=== PATIENT | male | born 1935 | race Caucasian/White ===

== ENCOUNTER 2024-03-12 15:41 | Inpatient (IN) | payer OTHER, SELFPAY ==
[2024-03-12] VITALS (14 sets, daily range): BP systolic 73–130; BP diastolic 43–88; BMI 21.2
[2024-03-12 13:15] LABS: % Basophils 0.1 % (0-2); % Eosinophils 1.6 % (0-6); % Immature Granulocytes 0.6 % (0-0.5); % Lymphocytes 10.1 % (20.5-51.1); % Monocytes 11.3 % (1.7-9.3); % Neutrophils 76.3 % (42.2-75.2); Absolute Eosinophils 0.3 10^3/uL (0-0.7); Absolute Immature Granulocytes 0.1 10^3/uL (0-0.05); Absolute Lymphocytes 1.7 10^3/uL (1.2-3.4); Absolute Monocytes 1.9 10^3/uL (0.1-0.6); Absolute Neutrophils 13.1 10^3/uL (1.4-6.5); Hematocrit 31.9 % (39.0-52.0); Hemoglobin 10.5 g/dL (13.0-18.0); Mean Corp Hgb Conc. 32.9 g/dL (33.0-37.0); Mean Corpuscular Hgb 28.3 pg (27.0-31.0); Mean Platelet Volume 9.4 fL (7.4-10.4); Nucleated Red Blood Cells % 0 % (-); Platelet Count 525 10^3/uL (130-400); Red Blood Cell Count 3.71 10^6/uL (4.70-6.10); Red Cell Dist. Width 14.9 % (11.5-14.5); White Blood Cell Count 17.2 10^3/uL (4.8-10.8)
--- NOTE | 2024-03-12 13:16 | ED.GENMED ---
History of Present Illness
General
Chief Complaint: Change in Mental Status
Source: patient
Exam Limitations: none
Time Seen by Provider: 03/12/24 12:52
Nursing documentation reviewed up to this point in time: agreed with
History of Present Illness
History of Present Illness:
Patient currently being treated for C. difficile colitis, presents to ED from intermediate secondary to poor oral intake along with generalized weakness over the past 2 days. Upon arrival, patient is found to be hypotensive, and reports decreased
appetite, but has no other complaints. Denies fever. Denies abdominal pain. Denies nausea or vomiting. Patient states that he has not had any bowel movement over the past 2 days. Denies coughing. Denies headache. Denies dizziness.
Review of Systems
Review of Systems
Allergies reviewed?: Yes
All Other Systems: ROS reviewed and negative except as documented in HPI and ROS
Constitutional: Reports no symptoms; Denies fever
EENT: Reports no symptoms
Respiratory: Reports no symptoms; Denies cough or trouble breathing
Cardiac: Reports no symptoms
ABD/GI: Reports no symptoms; Denies abdominal pain, vomiting or diarrhea
Musculoskeletal: Reports no symptoms
Skin: Reports no symptoms
Neurological: Reports weakness; Denies headache
Phy Exam
Physical Exam
Physical Exam:
Physical Exam
General: mild distress, acutely ill. afebrile. weak appearing.
Head: nc/at. eomi
Neck: supple. normal range of motion.
Heart: s1/s2 regular rate and rhythm, no murmur. equal radial pulses.
Lungs: no acute respiratory distress. clear bilaterally
Abdomen: normal bowel sounds. not tender. no distention
Neuro: alert and oriented x 3. no focal neurological deficits
Skin: no rash
Psychiatric: well kept. interactive and cooperative
Extremities: no edema. no calf tenderness.
Sepsis
Sepsis Screening
Sepsis Assessment: Sepsis
Sepsis Screen
Sepsis Screen: Sepsis
Date: 03/12/24
Time: 19:38
Course
Orders/Labs/Results
Orders:
Orders
03/12/24 Breakfast
Regular
At Your Request: Limited, Rules Examiner Required
03/12/24 12:53
EKG [Electrocardiogram (*1)] Urgent
Reason for Study: Chest Pain
EKG- Treatment ONCE
03/12/24 13:03
Complete Blood Count/With Diff Urgent
Comprehensive Metabolic Panel Urgent
03/12/24 14:00
0.9% Sodium Chloride 1000 ml [Nss] 1,000 ml IV Wide Open mls/hr
03/12/24 14:39
CR Chest - 2 Views Stat
Comment:
Reason For Exam: sob
03/12/24 14:40
Admit/Transfer Patient As Directed
Co-Sign Provider:
Level of Care: Inpatient admission
Assign to:: IMU- Intermediate Care
Physician / Group: akosua weller
Diagnosis: acute encephalopathy
Reason for Hospitalization: acute encephalopathy
Expected length of stay greater than two midnights?: Yes
ELOS- Estimated Length of Stay in days: 3
I certify the patient meets the requirements for IP care: Yes
PRN Pain Medication Management As Directed
May give lesser potent ordered pain med per pt: Yes
preference::
Protocol:: Medication orders for pain may be administered in a
manner that supports deferring to patient preference
when the pt is:
- Requesting an ordered lesser potent pain medication.
Least to most potent pain medications are defined
as: acetaminophen < NSAID < tramadol < opioids
(morphine, oxycodone, hydromorphone).
- Requesting a lesser dose of the same medication IF
ORDERED.
- Requesting a less intrusive route of administration
if both routes are prescribed by the provider (PO <
IV).
03/12/24 14:41
Code Status As Directed
Resuscitation Status: Full Code
03/12/24 16:17
0.9% Sodium Chloride 1000 ml [Nss] 1,000 ml IV 80 mls/hr
Acetaminophen [Tylenol] 650 mg PO Q4HPRN PRN
03/12/24 16:17
Activity As Directed
Activity Level: As Tolerated
Vital Signs As Directed
Frequency: Per unit guidelines
DX Deep Vein Thrombosis Video Routine
03/12/24 16:21
Artificial Tears (Pf) [Refresh Eye Drops (Pf)] 1 drops BOTH EYES Q1HPRN PRN
03/12/24 17:21
UA Reflex to Culture [Urinalysis Reflex To Culture] Stat
Date Specimen was Collected: 03/12/24
Time Specimen was Collected: 16:21
03/12/24 20:00
Heparin 5,000 units SC Q12
Non-Formulary Item See Dose Instructions PO Q12
03/12/24 22:00
Atorvastatin [Lipitor] 20 mg PO HS
03/13/24 06:00
Basic Metabolic Panel IN AM
Complete Blood Count/No Diff IN AM
03/14/24 06:00
Basic Metabolic Panel IN AM
Complete Blood Count/No Diff IN AM
03/15/24 06:00
Basic Metabolic Panel IN AM
Complete Blood Count/No Diff IN AM
03/16/24 06:00
Basic Metabolic Panel IN AM
Complete Blood Count/No Diff IN AM
Abnormal Lab Results
03/12/24
13:03
WBC 17.2 H 10^3/uL
(4.8-10.8)
RBC 3.71 L 10^6/uL
(4.70-6.10)
Hgb 10.5 L g/dL
(13.0-18.0)
Hct 31.9 L %
(39.0-52.0)
MCHC 32.9 L g/dL
(33.0-37.0)
RDW 14.9 H %
(11.5-14.5)
Plt Count 525 H 10^3/uL
(130-400)
Abs Immat Gran (auto) 0.1 H 10^3/uL
(0-0.05)
Absolute Neuts (auto) 13.1 H 10^3/uL
(1.4-6.5)
Absolute Monos (auto) 1.9 H 10^3/uL
(0.1-0.6)
Immature Gran % 0.6 H %
(0-0.5)
Neutrophils % 76.3 H %
(42.2-75.2)
Lymphocytes % 10.1 L %
(20.5-51.1)
Monocytes % 11.3 H %
(1.7-9.3)
Sodium 129 L mmol/L
(135-145)
Chloride 90 L mmol/L
(98-107)
Creatinine 1.4 H mg/dL
(0.7-1.3)
03/12/24 13:03
03/12/24 13:03
Vital Signs
Initial and Last Documented VS:
Initial Vital Signs
Pulse Resp BP
95 25 80/50
03/12/24 12:35 03/12/24 12:35 03/12/24 12:35
Last Documented Vital Signs
Temp Pulse Resp BP Pulse Ox
99.6 F 93 13 93/56 99
03/12/24 17:13 03/12/24 17:13 03/12/24 17:13 03/12/24 17:13 03/12/24 17:13
MDM/Problems Addressed
MDM/Problems Addressed:
Patient evaluated immediately upon arrival secondary to severe hypotension with mental status change. History and exam consistent with likely dehydration, from currently being treated C. difficile colitis along with poor oral intake. No focal
complaint nor other findings noted on exam. Patient will require further IV hydration as inpatient.
Hypertension improving with IV hydration. No indication for pressor support at this time.
Critical care statement: A total of 30 minutes of critical care time was provided for this patient. This includes management of unstable vital signs, evaluation of the patient at bedside, reviewing the patient's pertinent medical records, review of
old EKGs and review of pertinent medical records. This time with separate from time utilized to perform the aforementioned documented procedures
*EKG
Interpreted by ED Provider?: Yes
EKG Intrepretation Date: 03/12/24
Heart Rate: 87
Rate: normal
QRS Pattern: right bundle branch block
*Critical Care Note
Total Time (30-74mins, 75-104mins- exclusive of procedures): 30 min
ED Attending Note
-
Portions of this chart may have been created with voice recognition software.� Occasional wrong word or��sound alike� substitutions may have occurred due to the inherent limitations of voice recognition software.
Discharge Plan
Departure
Patient Disposition: Admit
Date of Disposition: 03/12/24
Time of Disposition: 13:43
Admit to: Telemetry
Presentation/result/management discussed w/ accepting MD/DO: Hospitalist
Discharge Problem:
Hypotension, Dehydration, Weakness, C. difficile diarrhea
Interventions
Interventions:
ED- Neurological Assessment Last Done: 03/12/24 17:12
[2024-03-12 13:36] LABS: ALT (SGPT) 21 U/L (0-50); AST (SGOT) 28 U/L (17-59); Albumin 4.1 g/dl (3.5-5.0); Alkaline Phosphatase 98 U/L (38-126); Blood Urea Nitrogen 20 mg/dl (9-20); Calcium 9.3 mg/dl (8.4-10.2); Carbon Dioxide 24 mmol/L (22-30); Chloride 90 mmol/L (98-107); Estimated Creatinine Clearance 35 ml/min; Glucose 99 mg/dl (70-99); Potassium 4.4 mmol/L (3.5-5.1); Sodium 129 mmol/L (135-145); Total Bilirubin 0.6 mg/dl (0.2-1.3); eGFR 48.65
[2024-03-12] MEDS: NSS 1000 IV (14:01)
--- NOTE | 2024-03-12 14:19 | HPS.HSE ---
Addendum entered and electronically signed by Mark Ragsdale MD 03/12/24 18:02:
I saw and examined the patient.
The COMBER TENDER or PA's note was reviewed and I agree with the note.
Comment: 88 year old with PMH for hypertension, hyperlipidemia presented to us from [place] home with hypotension and confusion. Recently had gradual for C. difficile colitis, treated with Pradaxa Meissen. Now admitted for tries weakness, fatigue,
continued hypotension. Patient is poor historian, although acknowledges person, year and president. Blood pressure 93/56, respirate 13, pulse 93, afebrile. White count 17.2, platelets 525, sodium 129, creatinine 1.4 unknown baseline, UA is
positive. No imaging or lactate was performed in the ED. Awaiting official read of CT abdomen pelvis, head CT. Plan�continue IV fluids, obtain lactate. Follow-up on CT head. Start empiric ceftriaxone for UTI. Monitor hyponatremia with
resuscitation. Hold antihypertensives.
Original Note:
Family Physician
-
Family Physician:
Chief Complaint
-
confusion
History of Present Illness
88 year old with PMH for hypertension, hyperlipidemia presented to us from [place] home with hypotension and confusion. Patient is poor historian. History obtained from daughter. patient currently being treated for C. difficile colitis. Patient
was just got released from [place] on the . he was admitted there with C diff and hypotension. Daughter stated poor oral intake and generalized weakness and fatigue. Denied fevers chills patient denied chest pain or short of breath. Patient
denied abdominal pain, nausea, vomiting or diarrhea. Patient denied dysuria hematuria.
Patient was noted hypotensive in ER. Patient received fluids. Admitting for further management.
Medical History
Past Medical History
Past Medical History: Reports Other
Additional Past Medical History:
C. difficile diarrhea
Anemia
Hypertension
Hyperlipidemia
CKD
A-fib
Past Surgical History: Reports Other
Social History
Tobacco: Non-smoker
Alcohol: None
Drug: None
Personal: Single
Living: Assisted Living
Family History
Family History: Not pertinent
Allergies / Home Medications
Allergies reflects when Allergies were last updated in [facility].
Home Medications with original date entered in [facility]
Allergy/Medication List:
Allergies
Allergy/AdvReac Type Severity Reaction Status Date / Time
cephalexin Allergy Unknown Unknown Verified 03/12/24 12:52
Home Medications
acetaminophen 325 mg tablet 650 mg PO Q6HPRN PRN mild pain/fever 03/12/24
bisacodyl 10 mg rectal suppository 10 mg ME DAILYPRN PRN if no results from mom 03/12/24
dextran 70-hypromellose (PF) 0.1 %-0.3 % eye drops in a dropperette (Artificial Tears (PF)) 1 drp BOTH EYES Q1HPRN PRN dry eyes 03/12/24
fidaxomicin 200 mg tablet 200 mg PO Q12H 03/12/24
hydrochlorothiazide 25 mg tablet 25 mg PO DAILY 03/12/24
magnesium hydroxide 400 mg/5 mL oral suspension (Milk of Magnesia) 30 ml PO [id number] PRN no bm x3 days 03/12/24
methocarbamol 500 mg tablet 500 mg PO TIDPRN PRN muscle spasms 03/12/24
metoprolol succinate 25 mg tablet,extended release 24 hr 25 mg PO DAILY 03/12/24
simvastatin 40 mg tablet 40 mg PO HS 03/12/24
Review of Systems
-
Constitutional: Reports No Symptoms
EENT: Reports No Symptoms
Respiratory: Reports No Symptoms
Cardiac: Reports No Symptoms
Abdomen/GI: Reports No Symptoms
: Reports No Symptoms
Musculoskeletal: Reports No Symptoms
Skin: Reports No Symptoms
Neurological: Reports No Symptoms
Endocrine: Reports No Symptoms
Hematologic/Lymphatic: Reports No Symptoms
Psych: Reports No Symptoms
Physical Exam
Vital Signs
Vital Signs
Temp Pulse Resp BP Pulse Ox
98.1 F 93 25 76/43 98
03/12/24 12:39 03/12/24 12:45 03/12/24 12:45 03/12/24 12:41 03/12/24 12:45
Physical Exam
General: Well Developed, Well Nourished and No Apparent Distress
HEENT: NormoCephalic, Moist mucous membranes and Atraumatic
Respiratory: Clear
Cardiac: S1/S2 and Regular Rhythm; No Murmur or Rub
GI: Soft, Non Tender, Non Distended and Normal Bowel Sounds; No Organomegaly
Rectal: Deferred by Provider
Musculoskeletal: No Clubbing, No Cyanosis and No Edema
Skin: No Rash
Neuro: Nonfocal/grossly intact
Psych: Confused
Laboratory Results
-
03/12/24 13:03
03/12/24 13:03
Laboratory Results
Total Bilirubin 0.6 mg/dl (0.2-1.3) 03/12/24 13:03
AST 28 U/L (17-59) 03/12/24 13:03
ALT 21 U/L (0-50) 03/12/24 13:03
Alkaline Phosphatase 98 U/L (38-126) 03/12/24 13:03
Data Reviewed
-
Lab Data: Labs Reviewed by me
Impression/Plan
-
# Hypotension/weakness likely from poor oral intake
-PT/OT consulted
-Fluids continued
-Continue to monitor vital signs
# Metabolic encephalopathy likely from c diff infection
-Obtain UA
-obtain chest x ray
-obatain CT head
-obatin C diff
-blood culture
-CT abdomen pelvis
-Lactate ordered
#C. difficile infection
-WBC 17.2, patient is afebrile
-Fidaxomicin continued
# Anemia likely chronic
-Hemoglobin stable at 10.5
-No active bleeding
-Continue to monitor
# Hyponatremia/acute kidney injury likely hypovolemic
-Sodium 129
-Continue to monitor BMP
-LR continued
# Hypotension
# history of hypertension
-Hold metoprolol and HCTZ
# Hyperlipidemia
-Statin continued
# DVT prophylaxis
-Heparin subcu
#CODE STATUS
-Full code
[2024-03-12 17:35] LABS: Urine Albumin Trace (Neg - Trace); Urine Bilirubin Negative (Negative); Urine Character Slightly Cloudy (Clear); Urine Color Yellow; Urine Glucose Negative (Negative); Urine Ketone Negative (Negative); Urine Leukocyte 2+ (Negative); Urine Nitrite Negative (Negative); Urine Occult Blood 2+ (Negative); Urine Urobilinogen Negative (Neg - 1+)
[2024-03-12 17:43] LABS: Lactic Acid 0.8 mmol/L (0.7-2.0)
[2024-03-12 17:50] LABS: Urine Bacteria Many (Negative); Urine Urothelial Cell 0-2 /LPF (FEW); Urine White Cell 80-90 /HPF (0-5)
[2024-03-12] MEDS: LR 1000 IV (17:59)
[2024-03-12] MEDS: TYLENOL 650 MG PO (17:59)
[2024-03-12] MEDS: STERILE WATER FOR INJECTION 10 ML IV (20:49)
[2024-03-12] MEDS: HEPARIN 5000 UNITS SC (20:49)
[2024-03-12] MEDS: ROCEPHIN 1000 MG IV (20:49)
[2024-03-12] MEDS: NON-FORMULARY ITEM 1 UNIT PO (20:49)
[2024-03-13] VITALS (18 sets, daily range): BP systolic 101–149; BP diastolic 52–85; PULSE 68–83; O2SAT 97; BMI 21.2
[2024-03-13] MEDS: TYLENOL 650 MG PO ×4 (00:43→22:05)
[2024-03-13] MEDS: LIPITOR 20 MG PO (00:44)
[2024-03-13] MEDS: LR 1000 IV ×2 (06:18→18:21)
[2024-03-13 06:21] LABS: Hematocrit 29.6 % (39.0-52.0); Hemoglobin 9.7 g/dL (13.0-18.0); Mean Corp Hgb Conc. 32.8 g/dL (33.0-37.0); Mean Corpuscular Hgb 28.2 pg (27.0-31.0); Mean Platelet Volume 9.5 fL (7.4-10.4); Platelet Count 489 10^3/uL (130-400); Red Blood Cell Count 3.44 10^6/uL (4.70-6.10); Red Cell Dist. Width 14.8 % (11.5-14.5)
[2024-03-13 06:34] LABS: Blood Urea Nitrogen 17 mg/dl (9-20); Calcium 9.1 mg/dl (8.4-10.2); Carbon Dioxide 21 mmol/L (22-30); Chloride 96 mmol/L (98-107); Estimated Creatinine Clearance 62 ml/min; Glucose 69 mg/dl (70-99); Potassium 4.4 mmol/L (3.5-5.1); Sodium 132 mmol/L (135-145); eGFR > 60.00
[2024-03-13] MEDS: HEPARIN 5000 UNITS SC ×2 (09:21→20:05)
[2024-03-13] MEDS: NON-FORMULARY ITEM PO (09:29)
[2024-03-13] MEDS: NON-FORMULARY ITEM 1 UNIT PO ×2 (10:30→20:07)
--- NOTE | 2024-03-13 15:12 | W.PN.HOSP.TC ---
Today's Communication/Plan
-
Repeat blood cultures, f/u cultures
Continue antibiotics
monitor bmp
cont cdiff treatment, iso precautions
Assessment / Plan
Assessment / Plan
General: Well Developed, Well Nourished and No Apparent Distress
HEENT: NormoCephalic, Moist mucous membranes and Atraumatic
Respiratory: Clear
Cardiac: S1/S2 and Regular Rhythm; No Murmur or Rub
GI: Soft, Non Tender, Non Distended and Normal Bowel Sounds; No Organomegaly
Rectal: Deferred by Provider
Musculoskeletal: No Clubbing, No Cyanosis and No Edema
Skin: No Rash
Neuro: Nonfocal/grossly intact
Psych: Confused
#Severe sepsis
� Secondary to complicated UTI, bacteremia
�continue ceftriaxone, improving
� Repeat blood cultures, follow-up final cultures
� IV fluids
#Hyponatremia
� Most likely hypovolemic hyponatremia
� Monitor with resuscitation
#Proctitis
#C. difficile infection
� Continue Dificid
#Acute metabolic encephalopathy
� Secondary sepsis
� Continue to monitor, improving
#Moderate gallbladder distention
� No right upper quadrant tenderness
� No evidence of transaminitis
� Follow-up outpatient
#Chronic anemia
� Continue to monitor
#Hyperlipidemia
Continue statin
#DVT prophylaxis
� HSQ
Total time spent on today's encounter was 50 minutes which included time spent in counseling the patient/family regarding diagnosis and treatment plan as listed above, goals of care, and symptom management. Case was discussed with nursing staff,
specialists, and care coordinators/case management. All labs and imaging personally reviewed by me. Remainder the time spent in detailed review of previous records, lab data, imaging, and other medical provider documentation
Anticipated Discharge: > 48 hours
Subjective/Interval History
-
Date of Service: March 13, 2024
Patient's mental status greatly improved
Objective Data
-
Labs:
Laboratory Results
03/13/24
05:24
WBC 15.0 H
Hgb 9.7 L
Hct 29.6 L
Plt Count 489 H
Sodium 132 L
Potassium 4.4
Chloride 96 L
Carbon Dioxide 21 L
BUN 17
Creatinine 0.8
Glucose 69 L
Calcium 9.1
Vital Signs:
Vital Signs
Temp Pulse Resp BP Pulse Ox
98.3 F 92 18 106/70 100
03/13/24 15:07 03/13/24 11:03 03/13/24 11:03 03/13/24 11:03 03/12/24 20:56
I&O
03/12/24 03/13/24 03/14/24
06:59 06:59 06:59
Intake Total 1440 / 1440
Output Total 1050 / 1050 525 / 525
Balance 390 / 390 -525 / -525
Review of Systems
-
History Source: Patient
All other systems: Not reviewed unless documented
Data Reviewed
-
CT Scan: Report Reviewed by me
Labs: Labs Reviewed by me
--- NOTE | 2024-03-13 16:46 | PTCARENOTE ---
rec'd pt from the ER. Transferred in to the bed. denies pain. placed on tele pack #25 pt NSR with PVCs. Ambulated to the bathroom using rolling walker with assist times one. LR infusing at 80ml/hr. Oriented to room call cali in reach.
[2024-03-13] MEDS: ROCEPHIN 1000 MG IV (17:38)
[2024-03-13] MEDS: STERILE WATER FOR INJECTION 10 ML IV (17:38)
[2024-03-13] MEDS: LIPITOR PO (21:11)
[2024-03-14 03:37] VITALS: BP 130/59
[2024-03-14] MEDS: LR 1000 IV (06:41)
[2024-03-14 07:38] VITALS: BP 146/73
[2024-03-14 08:05] LABS: Hematocrit 31.6 % (39.0-52.0); Hemoglobin 9.8 g/dL (13.0-18.0); Mean Corpuscular Hgb 27.7 pg (27.0-31.0); Mean Corpuscular Volume 89.3 fL (80.0-94.0); Platelet Count 471 10^3/uL (130-400); Red Blood Cell Count 3.54 10^6/uL (4.70-6.10); Red Cell Dist. Width 14.6 % (11.5-14.5); White Blood Cell Count 9.8 10^3/uL (4.8-10.8)
[2024-03-14 08:42] LABS: Blood Urea Nitrogen 16 mg/dl (9-20); Calcium 9.2 mg/dl (8.4-10.2); Carbon Dioxide 25 mmol/L (22-30); Chloride 99 mmol/L (98-107); Estimated Creatinine Clearance 70 ml/min; Glucose 87 mg/dl (70-99); Potassium 4.3 mmol/L (3.5-5.1); Sodium 135 mmol/L (135-145); eGFR > 60.00
[2024-03-14] MEDS: NON-FORMULARY ITEM 1 UNIT PO ×2 (10:23→20:43)
[2024-03-14] MEDS: HEPARIN 5000 UNITS SC ×2 (10:24→20:41)
[2024-03-14 11:02] VITALS: BP 149/70
[2024-03-14] MEDS: INVANZ 60 MG IV (11:24)
[2024-03-14] MEDS: TYLENOL 650 MG PO ×2 (12:44→20:48)
--- NOTE | 2024-03-14 12:51 | CON.ID ---
Consultation
-
Date/Time Consultation Requested: March 14, 2024 3143
Date/Time Consultation Performed: March 14, 2024 1250
Requesting Provider: Dr. Mark Ragsdale
Performing Provider: Dr. Gwen Richmond
Reason for Consultation: Bacteremia
Chief Complaint / Past History
Chief Complaint
Weakness and change in mental status
History of Present Illness
History obtained from the patient as well as review of outside medical records. 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
March 12 due to change in mental status. He was recently hospitalized at [facility] from March 02 to March 08 with fever, leukocytosis, diarrhea, hypotension, A-fib with RVR. Stool for C. difficile was positive. CT abdomen pelvis
no colitis. Chest x-ray negative. Patient was seen by infectious disease. He received oral vancomycin while in the hospital then at discharge to [facility], family picked up fidaxomicin 200 mg p.o. twice daily to complete a 10-day course at [facility].
Patient could not really recall events at SNF that led to hospitalization. Apparently he was hallucinating with with confusion. Also patient was incontinent of urine. He is now complaining of dysuria. In the ER here, white count of 17.2.
Afebrile. CAT scan of the abdomen shows moderate acute proctitis, severe urinary bladder wall thickening. In initially was started on ceftriaxone then changed to ertapenem today. Admission blood culture positive for GPC cluster. Patient reports
he has had 3 episodes of C. difficile. Currently no diarrhea. No rectal pain. No abdominal pain. He still has the dysuria. No flank pain. No fevers or chills. Appetite is better.
Past History
Additional Past Medical History:
Hypertension
Dyslipidemia
Atrial fibrillation
Iron-deficient Anemia
Aortic valve stenosis
Recurrent C. difficile
Osteoarthritis
Lumbar radiculopathy
Tardy palsy of left ulnar nerve
Macular degeneration
Cervical spine laminectomy
Left TKR
bilateral carpal tunnel surgery
Allergy History:
cephalexin Allergy (Verified 03/12/24 18:30)
Unknown
Medications Reviewed: Yes
Current Antibiotics:
s/p ceftriaxone x 2 doses
Ertapenem
Social History
Tobacco: Former Smoker
Alcohol: Daily (1-2 wine per day)
Drug: None
Personal:
Living: [facility] ([facility])
Family History
Family History: Not Pertinent
Review of Systems
Review of Systems
General: Change in Appetite; Negative Fever or Chills
HEENT: Negative Headache
Cardiovascular: Negative Dyspnea
Respiratory: Negative Dyspnea or Cough
Gasteroenterology: Negative Nausea, Vomiting or Diarrhea
Genital / Urological: Dysuria; Negative Flank Pain
Endocrine: Weakness
Skin / Hair / Nails: Negative Rash
Neurological: Negative Dizziness
All systems: All other systems were reviewed and were negative
Vital Signs
Temp Pulse Resp BP Pulse Ox
98.7 F 69 18 149/70 99
03/14/24 11:02 03/14/24 11:02 03/14/24 11:02 03/14/24 11:02 03/14/24 11:02
Physical Exam
Physical Exam
Constitutional: No Acute Distress and Comfortable
Eyes: No Conjunctival Hemorrhage and Sclera Anicteric
Cardiovascular: Regular Rate and S1/S2
Pulmonary: Clear
Gastrointestinal: Soft, Non Tender and Non Distended
Genito-Urinary: Negative CVA Tenderness
Extremities: Negative Edema
Musculoskeletal: Negative Joint Swelling or Joint Effusion
Neurological: AO x 3
Lab / Diagnostic Study Results
03/14/24 07:34
03/14/24 07:34
Abs Immat Gran (auto) 0.1 10^3/uL (0-0.05) H 03/12/24 13:03
Absolute Neuts (auto) 13.1 10^3/uL (1.4-6.5) H 03/12/24 13:03
Absolute Lymphs (auto) 1.7 10^3/uL (1.2-3.4) 03/12/24 13:03
Absolute Monos (auto) 1.9 10^3/uL (0.1-0.6) H 03/12/24 13:03
Absolute Basos (auto) 0.0 10^3/uL (0-0.2) 03/12/24 13:03
Immature Gran % 0.6 % (0-0.5) H 03/12/24 13:03
Neutrophils % 76.3 % (42.2-75.2) H 03/12/24 13:03
Lymphocytes % 10.1 % (20.5-51.1) L 03/12/24 13:03
Monocytes % 11.3 % (1.7-9.3) H 03/12/24 13:03
Eosinophils % 1.6 % (0-6) 03/12/24 13:03
Basophils % 0.1 % (0-2) 03/12/24 13:03
Lactic Acid 0.8 mmol/L (0.7-2.0) 03/12/24 17:21
Ur Squamous Epith Cells 3-5 /LPF (Few) 03/12/24 17:21
Microbiology Results
Micro:
03/14/24 12:00 Blood Culture - Pending
Blood/Venous
03/12/24 17:21 Blood Culture - Preliminary
Blood/Venous Coagulase neg. staphylococcus
Additional testing on request
Gram Stain - Preliminary
03/12/24 17:21 Urine Culture - Final
Urine Proteus vulgaris
Klebsiella pneumoniae
03/12/24 17:21 Blood Culture - Preliminary
Blood/Venous No Growth in 24 hours- Final report to follow
03/13/24 15:37 Blood Culture - Pending
Blood/Venous
03/12/24 CT a/p: MODERATE ACUTE PROCTITIS in the rectum with moderate extraperitoneal edema in the presacral space. SEVERE COLONIC DIVERTICULOSIS throughout the entire colon.
03/14/24 Abd US: Distended gallbladder without evidence for cholelithiasis or secondary findings suggestive of acute cholecystitis.
Assessment / Plan
# CoNS bacteremia 1 of 2 sets =contaminant
# Symptomatic UTI
- Ucx Proteus, Klebsiella
- DC Ertapenem (d1)
- Transition to Bactrim DS 1 tab po bid through 03/20/24 (7d total course)
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
- s/p Po vancomycin at [facility] 9105/03 to 03/08), then outpt fidaxomicin to complete 10d
- Continue fidaxomicin 200mg po bid (day 7 of 10) through 03/17/2024, then prophylactic Vancomycin 125mg po bid through 5 days past completion of Bactrim, i.e. through 03/25/24.
- Follow-up with RONI Robles at [facility], as scheduled.
# Leukocytosis resolved
# Conditions prior to admission
Hypertension
Dyslipidemia
Atrial fibrillation
Iron-deficient Anemia
Aortic valve stenosis
Recurrent C. difficile
Osteoarthritis
Lumbar radiculopathy
Tardy palsy of left ulnar nerve
Macular degeneration
Cervical spine laminectomy
Left TKR
bilateral carpal tunnel surgery
[2024-03-14 14:38] VITALS: BP 139/60
--- NOTE | 2024-03-14 14:54 | W.PN.HOSP.TC ---
Today's Communication/Plan
-
Switch to Bactrim
Continue Dificid
DC ready, foster care case manager aware�placement pending
Assessment / Plan
Assessment / Plan
General: Well Developed, Well Nourished and No Apparent Distress
HEENT: NormoCephalic, Moist mucous membranes and Atraumatic
Respiratory: Clear
Cardiac: S1/S2 and Regular Rhythm; No Murmur or Rub
GI: Soft, Non Tender, Non Distended and Normal Bowel Sounds; No Organomegaly
Rectal: Deferred by Provider
Musculoskeletal: No Clubbing, No Cyanosis and No Edema
Skin: No Rash
Neuro: Nonfocal/grossly intact
Psych: Confused
#Severe sepsis
� Secondary to complicated UTI
� Proteus vulgaris and Klebsiella pneumoniae
� Altered
� Switch to Bactrim: Bactrim DS 1 tab po bid through 03/20/24 (7d total course)
#Hyponatremia
� Most likely hypovolemic hyponatremia
� Monitor with resuscitation
�Improving
#Proctitis
#C. difficile infection, recurrent
� Continue Dificid
-Continue fidaxomicin 200mg po bid (day 7 of 10) through 03/17/2024, then prophylactic Vancomycin 125mg po bid through 5 days past completion of Bactrim, i.e. through 03/25/24.
-Follow-up with RONI Robles at [facility], as scheduled.
#Acute metabolic encephalopathy
� Secondary sepsis
� Continue to monitor, improving
#Moderate gallbladder distention
� No right upper quadrant tenderness
� No evidence of transaminitis
� Right upper quadrant ultrasound with no acute findings
� Follow-up outpatient
#Chronic anemia
� Continue to monitor
#Hyperlipidemia
Continue statin
#DVT prophylaxis
� HSQ
Anticipated Discharge: Within 24 hours
Subjective/Interval History
-
Date of Service: March 14, 2024
No acute events overnight, mental status is improved
Objective Data
-
Labs:
Laboratory Results
03/14/24
07:34
WBC 9.8
Hgb 9.8 L
Hct 31.6 L
Plt Count 471 H
Sodium 135
Potassium 4.3
Chloride 99
Carbon Dioxide 25
BUN 16
Creatinine 0.7
Glucose 87
Calcium 9.2
Vital Signs:
Vital Signs
Temp Pulse Resp BP Pulse Ox
98.2 F 63 20 139/60 100
03/14/24 14:38 03/14/24 14:38 03/14/24 14:38 03/14/24 14:38 03/14/24 14:38
I&O
03/13/24 03/14/24 03/15/24
06:59 06:59 06:59
Intake Total 1440 / 1440 720 / 720
Output Total 1050 / 1050 1875 / 1875
Balance 390 / 390 -1155 / -1155
Review of Systems
-
History Source: Patient
All other systems: Not reviewed unless documented
Data Reviewed
-
CT Scan: Report Reviewed by me
Labs: Labs Reviewed by me
--- NOTE | 2024-03-14 15:37 | CM ---
CM spoke w/ pt's daughter, Robyn, who is also POA. Initial assessment completed. Pt admitted from [facility]. Per Robyn, pt admitted to [facility] from [facility].
Robyn states pt lives alone in a 2STH- no steps. Pt has 1st flr set up. Pt prev was independent w/ walker and cane. No other DME identified at this time.
Denies VN/PT hx.
Address, point of contact and insurance confirmed
PCP: Dr. Byrd
Pharmacy: Not identified
PT recommending return to SNF for further therapy services.
Robyn discussed concerns for pt's safety at this time as pt cannot maintain living on his own. Robyn stated it's been multiple times she and her has found pt on the floor of his home, in feces, last time being on [address]. Robyn stated
pt always states he does not remember falling and will say he 'bumped' his arm and denies fall. Robyn continued to state that pt is unable to cook for himself, clean his home and does not clean himself well. Robyn stated pt is resistant and adamant
of not letting people into his home as Robyn shared she has offered pt caregivers/aides, meals on wheels, cleaning service, etc. but pt refuses to let people in his home. Robyn stated pt doesn't even let her clean his home. Pt refuses to let Robyn
alter home when asked if she could install bars in the bathroom. Robyn states pt simply cannot sustain on his own or care for himself at this point. Robyn stated she has been looking into facilities and have been in contact w/ Austyn from [facility]. Robyn stated she visited facility in October and facility is considering accepting pt. Per Robyn, facility is ready to do an assessment on pt but pt is requiring rehab at this time. Robyn is agreeable as pt has to get his
strength back. Would like to explore other facilities, does not want pt to return to [facility].
As requested, CM emailed Robyn SNF list for her to review. CM advised Robyn to follow up tomorrow w/ CM so referrals can be sent.
Will need insurance auth
Plan: SNF; pending accepting facility and auth. Will await daughter to provide options to begin making referrals
[2024-03-14 19:30] VITALS: BP 137/79
[2024-03-14] MEDS: LIPITOR 20 MG PO (20:42)
[2024-03-14 23:05] VITALS: BP 129/74
[2024-03-14] MEDS: LR IV (23:33)
[2024-03-15 03:21] VITALS: BP 131/77
[2024-03-15 07:50] VITALS: BP 159/76
[2024-03-15] MEDS: HEPARIN 5000 UNITS SC ×2 (07:50→19:39)
[2024-03-15] MEDS: BACTRIM DS 800 MG/160 MG 1 TABLET PO ×2 (07:50→19:39)
[2024-03-15] MEDS: NON-FORMULARY ITEM 1 UNIT PO ×2 (07:51→19:40)
[2024-03-15 08:39] LABS: Hematocrit 31.1 % (39.0-52.0); Hemoglobin 9.9 g/dL (13.0-18.0); Mean Corp Hgb Conc. 31.8 g/dL (33.0-37.0); Mean Corpuscular Hgb 27.9 pg (27.0-31.0); Mean Corpuscular Volume 87.6 fL (80.0-94.0); Mean Platelet Volume 9.3 fL (7.4-10.4); Platelet Count 538 10^3/uL (130-400); Red Blood Cell Count 3.55 10^6/uL (4.70-6.10); Red Cell Dist. Width 14.6 % (11.5-14.5); White Blood Cell Count 7.4 10^3/uL (4.8-10.8)
[2024-03-15 09:08] LABS: Blood Urea Nitrogen 14 mg/dl (9-20); Calcium 9.3 mg/dl (8.4-10.2); Carbon Dioxide 26 mmol/L (22-30); Chloride 98 mmol/L (98-107); Estimated Creatinine Clearance 82 ml/min; Glucose 82 mg/dl (70-99); Potassium 4.6 mmol/L (3.5-5.1); Sodium 137 mmol/L (135-145); eGFR > 60.00
[2024-03-15 10:19] VITALS: BP 108/82; BP 140/78; BP 150/78; PULSE 90; O2SAT 94
[2024-03-15] MEDS: TYLENOL 650 MG PO ×2 (11:10→19:40)
[2024-03-15 11:50] VITALS: BP 141/65
--- NOTE | 2024-03-15 13:03 | CM ---
assistant office manager reviewed patient's chart and met with patient and patient was admitted from [facility], patient was recently at [facility] and was placed at [facility] for short term rehab, patient plans on transitioning to assisted living at
[facility]. Per patient and daughterRobyn they were also looking at [facility] and [facility] as skilled options, skilled nursing case manager informed patient's daughter that she would faxed referrals to these facilities but if they had
no beds patient would need to return to [facility].
Plan; Skilled placement, referrals sent to [facility] and [facility] [facility]
--- NOTE | 2024-03-15 13:12 | W.PN.ID1 ---
Date of Service
Date of Service: March 15, 2024
Today's Communication
Continue Bactrim and fidaxomicin.
Assessment / Plan
# CoNS bacteremia 1 of 2 sets =contaminant
# Symptomatic UTI
- Ucx Proteus, Klebsiella
- Continue Bactrim DS 1 tab po bid through 03/20/24 (7d total course)
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
- s/p Po vancomycin at [facility] (03/02 to 03/08), then outpt fidaxomicin to complete 10d
- Continue fidaxomicin 200mg po bid (day 8 of 10) through 03/17/2024, then prophylactic Vancomycin 125mg po bid through 5 days past completion of Bactrim, i.e. through 03/25/24.
- Follow-up with RONI Robles at [facility], as scheduled.
# Leukocytosis resolved
# Conditions prior to admission
Hypertension
Dyslipidemia
Atrial fibrillation
Iron-deficient Anemia
Aortic valve stenosis
Recurrent C. difficile
Osteoarthritis
Lumbar radiculopathy
Tardy palsy of left ulnar nerve
Macular degeneration
Cervical spine laminectomy
Left TKR
bilateral carpal tunnel surgery
Chief Complaint
-: UTI and C-diff
Subjective / Review of Systems
Dysuria improving. + urinary frequency with small urine output.
No diarrhea.
Positive CASANOVA back of neck.
Vital Signs / Physical Exam
Vital Signs
Vital Signs
Temp Pulse Resp BP Pulse Ox
97.3 F 92 16 141/65 94
03/15/24 11:50 03/15/24 11:50 03/15/24 11:50 03/15/24 11:50 03/15/24 11:50
Physical Exam
Constitutional: No Acute Distress and Comfortable
Eyes: Sclera Anicteric
Gastrointestinal: Soft, Non Tender and Non Distended
Genito-Urinary: Negative CVA Tenderness
Neurological: AO x 3
Objective Data
Lab Data
Lab Results
03/15/24 07:16
03/15/24 07:16
Estimated Creat Clear 82 ml/min 03/15/24 07:16
Lactic Acid 0.8 mmol/L (0.7-2.0) 03/12/24 17:21
Total Bilirubin 0.6 mg/dl (0.2-1.3) 03/12/24 13:03
AST 28 U/L (17-59) 03/12/24 13:03
ALT 21 U/L (0-50) 03/12/24 13:03
Alkaline Phosphatase 98 U/L (38-126) 03/12/24 13:03
Most recent labs reviewed.
Micro Results:
03/14/24 12:00 Blood Culture - Preliminary
Blood/Venous No Growth in 24 hours- Final report to follow
03/12/24 17:21 Blood Culture - Final
Blood/Venous Coagulase neg. staphylococcus
Additional testing on request
Gram Stain - Final
03/15/24 07:59 C. difficile GDH Antigen & Toxins - Final
Feces/Stool C. difficile antigen positive, toxin negative.
Clostridium difficile present, but toxin not detected.
Patient may be a carrier, colonized with nontoxinogenic
strain or the level of toxin in sample is below detection
limits. This information should be used in conjunction with
the patient's clinical history.
03/15/24 07:59 Salmonella/Shigella Culture - Pending
Feces/Stool Campylobacter Culture - Pending
Shiga Toxin Test - Pending
03/12/24 17:21 Blood Culture - Preliminary
Blood/Venous No Growth in 48 hours- Final report to follow
03/13/24 15:37 Blood Culture - Preliminary
Blood/Venous No Growth in 24 hours- Final report to follow
03/12/24 17:21 Urine Culture - Final
Urine Proteus vulgaris
Klebsiella pneumoniae
03/12/24 CT a/p: MODERATE ACUTE PROCTITIS in the rectum with moderate extraperitoneal edema in the presacral space. SEVERE COLONIC DIVERTICULOSIS throughout the entire colon.
03/14/24 Abd US: Distended gallbladder without evidence for cholelithiasis or secondary findings suggestive of acute cholecystitis.
[2024-03-15 14:43] VITALS: BP 146/59
[2024-03-15] MEDS: LIPITOR 20 MG PO (21:42)
[2024-03-15 23:00] VITALS: BP 105/46
[2024-03-16 07:24] VITALS: BP 149/62
[2024-03-16] MEDS: NON-FORMULARY ITEM 1 UNIT PO ×2 (07:48→20:21)
[2024-03-16] MEDS: HEPARIN 5000 UNITS SC ×2 (07:49→20:22)
[2024-03-16] MEDS: BACTRIM DS 800 MG/160 MG 1 TABLET PO ×2 (07:49→20:21)
[2024-03-16 07:57] LABS: Hematocrit 28.8 % (39.0-52.0); Hemoglobin 9.4 g/dL (13.0-18.0); Mean Corp Hgb Conc. 32.6 g/dL (33.0-37.0); Mean Corpuscular Hgb 28.1 pg (27.0-31.0); Mean Platelet Volume 9.2 fL (7.4-10.4); Platelet Count 514 10^3/uL (130-400); Red Blood Cell Count 3.35 10^6/uL (4.70-6.10); Red Cell Dist. Width 14.9 % (11.5-14.5); White Blood Cell Count 6.1 10^3/uL (4.8-10.8)
[2024-03-16 08:29] LABS: Blood Urea Nitrogen 15 mg/dl (9-20); Calcium 9.1 mg/dl (8.4-10.2); Carbon Dioxide 25 mmol/L (22-30); Chloride 100 mmol/L (98-107); Estimated Creatinine Clearance 62 ml/min; Glucose 81 mg/dl (70-99); Potassium 4.6 mmol/L (3.5-5.1); Sodium 137 mmol/L (135-145); eGFR > 60.00
--- NOTE | 2024-03-16 13:24 | W.PN.ID1 ---
Date of Service
Date of Service: March 16, 2024
Today's Communication
See below.
Assessment / Plan
# CoNS bacteremia 1 of 2 sets =contaminant
# Symptomatic UTI, improving
- Ucx Proteus, Klebsiella
- Continue Bactrim DS 1 tab po bid through 03/20/24 (7d total course)
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
- s/p Po vancomycin at [facility] (03/02 to 03/08), then outpt fidaxomicin to complete 10d
- Continue fidaxomicin 200mg po bid (day 9 of 10) through 03/17/2024, then prophylactic Vancomycin 125mg po bid through 5 days past completion of Bactrim, i.e. through 03/25/24.
- Follow-up with RONI Robles at [facility], as scheduled.
# Leukocytosis resolved
# Conditions prior to admission
Hypertension
Dyslipidemia
Atrial fibrillation
Iron-deficient Anemia
Aortic valve stenosis
Recurrent C. difficile
Osteoarthritis
Lumbar radiculopathy
Tardy palsy of left ulnar nerve
Macular degeneration
Cervical spine laminectomy
Left TKR
bilateral carpal tunnel surgery
Chief Complaint
-: UTI and C-diff
Subjective / Review of Systems
Less urinary frequency and dysuria.
No diarrhea.
Vital Signs / Physical Exam
Vital Signs
Vital Signs
Temp Pulse Resp BP Pulse Ox
98.2 F 73 18 149/62 96
03/16/24 07:24 03/16/24 07:24 03/16/24 07:24 03/16/24 07:24 03/16/24 08:00
Physical Exam
Constitutional: No Acute Distress and Comfortable
Pulmonary: Clear
Gastrointestinal: Soft, Non Tender and Non Distended
Genito-Urinary: Negative CVA Tenderness
Objective Data
Lab Data
Lab Results
03/16/24 07:29
03/16/24 07:29
Estimated Creat Clear 62 ml/min 03/16/24 07:29
Lactic Acid 0.8 mmol/L (0.7-2.0) 03/12/24 17:21
Total Bilirubin 0.6 mg/dl (0.2-1.3) 03/12/24 13:03
AST 28 U/L (17-59) 03/12/24 13:03
ALT 21 U/L (0-50) 03/12/24 13:03
Alkaline Phosphatase 98 U/L (38-126) 03/12/24 13:03
Most recent labs reviewed.
Micro Results:
03/14/24 12:00 Blood Culture - Preliminary
Blood/Venous No Growth in 48 hours- Final report to follow
03/15/24 07:59 Salmonella/Shigella Culture - Preliminary
Feces/Stool Culture in Progress
Campylobacter Culture - Preliminary
Culture in Progress
Shiga Toxin Test - Pending
03/12/24 17:21 Blood Culture - Preliminary
Blood/Venous No Growth in 72 hours- Final report to follow
03/13/24 15:37 Blood Culture - Preliminary
Blood/Venous No Growth in 48 hours- Final report to follow
03/12/24 17:21 Blood Culture - Final
Blood/Venous Coagulase neg. staphylococcus
Additional testing on request
Gram Stain - Final
03/15/24 07:59 C. difficile GDH Antigen & Toxins - Final
Feces/Stool C. difficile antigen positive, toxin negative.
Clostridium difficile present, but toxin not detected.
Patient may be a carrier, colonized with nontoxinogenic
strain or the level of toxin in sample is below detection
limits. This information should be used in conjunction with
the patient's clinical history.
03/12/24 17:21 Urine Culture - Final
Urine Proteus vulgaris
Klebsiella pneumoniae
03/12/24 CT a/p: MODERATE ACUTE PROCTITIS in the rectum with moderate extraperitoneal edema in the presacral space. SEVERE COLONIC DIVERTICULOSIS throughout the entire colon.
03/14/24 Abd US: Distended gallbladder without evidence for cholelithiasis or secondary findings suggestive of acute cholecystitis.
Care Review
Plan reviewed with: Physician (Dr. Adolfo Sanches)
--- NOTE | 2024-03-16 14:04 | W.PN.HOSP.TC ---
Today's Communication/Plan
-
DC
Assessment / Plan
Assessment / Plan
#Severe sepsis
- No fever and normalized white count. Improving urinary symptoms as well.
� Secondary to complicated UTI
� Proteus vulgaris and Klebsiella pneumoniae
� Switch to Bactrim: Bactrim DS 1 tab po bid through 03/20/24 (7d total course)
#Hyponatremia
� Most likely hypovolemic hyponatremia
� Monitor with resuscitation
� Normalized
#Proctitis
#C. difficile infection, recurrent
� Continue Dificid
-Continue fidaxomicin 200mg po bid (day 7 of 10) through 03/17/2024, then prophylactic Vancomycin 125mg po bid through 5 days past completion of Bactrim, i.e. through 03/25/24.
-Follow-up with RONI Robles at [facility], as scheduled.
#Acute metabolic encephalopathy
� Secondary sepsis
� Unresolved
#Moderate gallbladder distention
� No right upper quadrant tenderness
� No evidence of transaminitis
� Right upper quadrant ultrasound with no acute findings
� Follow-up outpatient
#Chronic anemia
� Continue to monitor
#Hyperlipidemia
Continue statin
#DVT prophylaxis
� HSQ
Medically stable for discharge to rehab. Discussed with case management-ongoing disposition efforts
Anticipated Discharge: Today
Subjective/Interval History
-
Date of Service: March 16, 2024
Patient today tells me that his dysuria almost resolved. Frequency of urine has much improved compared to yesterday. Going less frequently. Denies any fever or chills.
Had 1 bowel movement. No diarrhea.
Tolerating diet.
Objective Data
-
Labs:
Laboratory Results
03/16/24
07:29
WBC 6.1
Hgb 9.4 L
Hct 28.8 L
Plt Count 514 H
Sodium 137
Potassium 4.6
Chloride 100
Carbon Dioxide 25
BUN 15
Creatinine 0.8
Glucose 81
Calcium 9.1
Vital Signs:
Vital Signs
Temp Pulse Resp BP Pulse Ox
98.2 F 73 18 149/62 96
03/16/24 07:24 03/16/24 07:24 03/16/24 07:24 03/16/24 07:24 03/16/24 08:00
I&O
03/15/24 03/16/24 03/17/24
06:59 06:59 06:59
Intake Total 1080 / 1080 1320 / 1320
Output Total 1600 / 1600 1050 / 1050
Balance -520 / -520 270 / 270
Review of Systems
-
Respiratory: Denies Trouble Breathing
Cardiac: Denies Chest Pain
Abdomen/GI: Denies Abdominal Pain
Neuro: Denies Dizzy
Physical Exam
-
General: Comfortable
HEENT: Moist Mucous Membranes
Respiratory: Non Labored Respirations; Negative Accessory Resp Muscle Use
Cardiac: Regular Rhythm and S1/S2
GI: Soft
Neuro: AO x 3
Data Reviewed
-
Labs: Labs Reviewed by me
--- NOTE | 2024-03-16 14:04 | CM ---
Addendum entered by Edyta Howell 03/16/24 16:45:
Per admissions at [facility] they are requesting that patient transfer tomorrow, physician, community health director and nursing made aware.
Addendum entered by Edyta Howell 03/16/24 16:26:
Patient has been approved for 7 days skilled level 1 at [facility], 03/16/24 to 03/22/24, Auth [id number], follow up with insurance at [phone].
Addendum entered by Edyta Howell 03/16/24 15:53:
Patient has been accepted at [facility] case management assistant spoke with patient's daughter, Robyn and she does not want her father to return to [facility], she is agreeable to [facility].
Plan; Will need to obtain Auth from [facility].
[facility]
Dr Callejas [phone]
[facility]
Report [phone]

Original Note:
manager loan spoke with [facility] and they cannot accept patient, also [facility] have no beds, [place] no beds, case management assistant reached out to patient's daughter and she would like referrals sent to [facility], [facility], [facility] and [facility], referrals sent to all these facilities.
Plan; Skilled placement, new referrals sent.
[2024-03-16 15:10] VITALS: BP 141/67; PULSE 73; O2SAT 97
[2024-03-16 15:11] VITALS: BP 130/70
[2024-03-16] MEDS: TYLENOL 650 MG PO (17:50)
[2024-03-16] MEDS: LIPITOR 20 MG PO (21:40)
[2024-03-16 23:00] VITALS: BP 123/50
[2024-03-17 07:14] VITALS: BP 167/69
[2024-03-17] MEDS: HEPARIN 5000 UNITS SC (07:37)
[2024-03-17] MEDS: NON-FORMULARY ITEM 1 UNIT PO (07:37)
[2024-03-17] MEDS: BACTRIM DS 800 MG/160 MG 1 TABLET PO (07:37)
--- NOTE | 2024-03-17 09:36 | CM ---
Patient has a 1:30pm pickle pumper today by w/dash beltran, cost of transportation is $85, daughter Robyn is aware, per Robyn she would like a call from physician today to review discharge,physician made aware.
Plan; Skilled placement at [facility] today.
[facility]
Report [phone]
--- NOTE | 2024-03-17 10:22 | PN.CDI ---
CDI
- -
CDI:
Physician Documentation Request
Admit Date: 03/12/24 15:41
Dear Doctor Myron,
Please review the following and provide your response in the progress notes.
Clinical Indicators:
- RN skin assessments indicate Stage 1 sacrum pressure injury, POA
Physician documentation of the type and location of wounds is required for compliant documentation. Based on the above clinical findings and your assessment, please provide the following in your progress note:
1. Location of the ulcer/wound, including laterality.
2. Type (etiology) of ulcer/wound:
- Diabetic ulcer
- Arterial (ischemic) ulcer
- Traumatic wound
- Venous stasis ulcer
- Pressure (decubitus) ulcer
- Other
Use of terms such as suspected, likely, concern for, or probable (associated with a specific diagnosis that is being evaluated, monitored, or treated as if it exists) are acceptable and can be coded in the inpatient setting, when documented at the
time of discharge.
Thank you,
Nuvia Ellsworth RN
CDI Specialist
Please use your independent medical judgment in providing your response.
*Source: National Pressure Ulcer Advisory Panel (NPUAP)
[2024-03-17 11:31] VITALS: BP 160/70
--- NOTE | 2024-03-17 13:12 | W.PN.HOSP.TC ---
Addendum entered and electronically signed by Elmer Sanches MD 03/20/24 16:55:
Stage 1 sacrum pressure injury, POA
Original Note:
Today's Communication/Plan
-
DC
Assessment / Plan
Assessment / Plan
#Severe sepsis
- No fevers and normalized white count. Improved urinary symptoms as well.
� Secondary to complicated UTI
� Proteus vulgaris and Klebsiella pneumoniae
� Switch to Bactrim: Bactrim DS 1 tab po bid through 03/20/24 (7d total course)
#Hyponatremia
� Most likely hypovolemic hyponatremia
� Monitor with resuscitation
� Normalized
#Proctitis
#C. difficile infection, recurrent
� Continue Dificid
-Continue fidaxomicin 200mg po bid (day 7 of 10) through 03/17/2024, then prophylactic Vancomycin 125mg po bid through 5 days past completion of Bactrim, i.e. through 03/25/24.
-Follow-up with RONI Robles at [facility], as scheduled.
#Acute metabolic encephalopathy
� Secondary sepsis
� Unresolved
#Moderate gallbladder distention
� No right upper quadrant tenderness
� No evidence of transaminitis
� Right upper quadrant ultrasound with no acute findings
� Follow-up outpatient
#Chronic anemia
� Continue to monitor
#Hyperlipidemia
Continue statin
#DVT prophylaxis
� HSQ
Medically stable for discharge to rehab.
DW Daughter yesterday and went over the details of dx, tx plan and follow up plan.
Total time of dc 35 min
Anticipated Discharge: Today
Subjective/Interval History
-
Date of Service: March 17, 2024
Voicing no specific complaints. Agreeable to go to rehab.
Denies any diarrhea.
Denies any dysuria today. Frequency of urine improved.
Objective Data
-
Vital Signs:
Vital Signs
Temp Pulse Resp BP Pulse Ox
98.4 F 70 18 160/70 98
03/17/24 11:31 03/17/24 11:31 03/17/24 11:31 03/17/24 11:31 03/17/24 11:31
I&O
03/16/24 03/17/24 03/18/24
06:59 06:59 06:59
Intake Total 1320 / 1320 1320 / 1320
Output Total 1050 / 1050 750 / 750
Balance 270 / 270 570 / 570
Review of Systems
-
Constitutional: Denies Fever
EENT: Denies Sore Throat
Respiratory: Denies Cough or Trouble Breathing
Cardiac: Denies Chest Pain
Abdomen/GI: Denies Abdominal Pain, Nausea, Vomiting or Diarrhea
Neuro: Denies Dizzy
Physical Exam
-
General: No Apparent Distress
HEENT: Moist Mucous Membranes
Respiratory: Non Labored Respirations; Negative Accessory Resp Muscle Use
Cardiac: Regular Rhythm and S1/S2
GI: Soft, Nontender, Nondistended and Normal Bowel Sounds
Neuro: AO x 3, No Motor Deficits and Other (Immediate recall 2/3); Negative Tremors, Slurred Speech or Facial Droop
Psych: Calm; Negative Confused or Agitated
--- NOTE | 2024-03-17 18:36 | W.DCSUMMARY ---
Discharge Summary
Discharge Data
Date of Admission: 03/12/24
Date of Discharge: 03/17/24
-
Pending Results: No
Hospital Course
Primary diagnosis:
Severe sepsis
Urinary tract infection
Recent recurrent see difficile diarrhea [third episode]
Secondary diagnosis:
Hypertension
Dyslipidemia
Atrial fibrillation
Iron-deficient Anemia
Aortic valve stenosis
Recurrent C. difficile
Osteoarthritis
Lumbar radiculopathy
Tardy palsy of left ulnar nerve
Macular degeneration
Cervical spine laminectomy
Left TKR
bilateral carpal tunnel surgery
Hospital course:
Patient was sent in from a local rehab due to change in mental status. He was recently at [facility] and was treated for C. difficile infection. He was on fidaxomicin. Along with confusion was having hallucination. He was complaining of
dysuria and incontinent of urine. CT and an admission showed severe urinary bladder wall thickening and moderate acute proctitis.
His evaluation revealed he had pyuria and symptomatic UTI and was growing Proteus and Klebsiella. He was initially on intravenous antibiotics which later switched to Bactrim DS to complete 03/20/2024. Was seen by ID.
He had a recent recurrent C. difficile diarrhea. He had no acute diarrheal symptoms. He was finishing a fidaxomicin and after that he would continue prophylactic vancomycin 5 days past completion of Bactrim through 03/25/2024.
He was seen by PT and they recommended SNF and he was discharged back to SNF.
Consultants on board: Infectious disease-Gwen Baird
Discharge Plan
-
Patient Disposition: [facility]/SNF
Discharge Diagnosis/Procedures: Severe sepsis from complicated UTI;recent recurrent C. difficile infection
Diet: Regular
Activity: As tolerated
Driving Restrictions: Not until seen by your Dr
Bathing Restrictions: None
Other Services: PT and OT
Referrals:
Rafi Callejas I., DO [Family Provider] -
Prescriptions:
New
sulfamethoxazole-trimethoprim 800-160 mg Tablet
1 tab PO BID Qty: 1 0RF
Rx Instructions:
Till 03/20/24
vancomycin 125 mg capsule
125 mg PO QID Qty: 1 0RF
Rx Instructions:
till 03/25/24
Continued
methocarbamol 500 mg Tablet
500 mg PO TIDPRN PRN (Reason: muscle spasms)
acetaminophen 325 mg Tablet
650 mg PO Q6HPRN PRN (Reason: mild pain/fever)
simvastatin 40 mg Tablet
40 mg PO HS
magnesium hydroxide [Milk of Magnesia] 400 mg/5 mL Suspension
30 ml PO [id number] PRN (Reason: no bm x3 days)
bisacodyl 10 mg Suppository
10 mg KS DAILYPRN PRN (Reason: if no results from mom)
hydrochlorothiazide 25 mg Tablet
25 mg PO DAILY
metoprolol succinate 25 mg Tablet Extended Release 24 Hr
25 mg PO DAILY
Artificial Tears (PF) 0.1-0.3 % Dropperette
1 drp BOTH EYES Q1HPRN PRN (Reason: dry eyes)
fidaxomicin 200 mg Tablet
200 mg PO Q12H Qty: 2 0RF
Patient Comments:
03/12/24: to take for 10 days from 03/08/24-03/18/24
Rx Instructions:
till 03/17/24
Discharge Orders:
Discharge Patient (As Directed); Ordered 03/16/24
Ordered By: Elmer Sanches
Discharge Date and Time
Discharge Date/Time: 03/17/24 13:15
Print Language: MALAY
== END 2024-03-17 13:15 | DRG 871 ==
LOC: 4 WEST ACU 15:41
PROVIDERS: Registered Nurse; ADMITTING PHYSICIAN Internal Medicine; ATTENDING PHYSICIAN Internal Medicine; CONSULT PHYSICIAN Internal Medicine Infectious Disease; EMERGENCY PHYSICIAN Emergency Medicine; FAMILY PHYSICIAN Internal Medicine
DX: A41.59 Other Gram-negative sepsis (principal); G93.41 Metabolic encephalopathy; N17.9 Acute kidney failure, unspecified; A04.71 Enterocolitis due to Clostridium difficile, recurrent; E87.1 Hypo-osmolality and hyponatremia; N39.0 Urinary tract infection, site not specified; I12.9 Hypertensive chronic kidney disease with stage 1 through stage 4 chronic kidney disease, or unspecified chronic kidney disease; R65.20 Severe sepsis without septic shock; N18.9 Chronic kidney disease, unspecified; D63.1 Anemia in chronic kidney disease; I48.91 Unspecified atrial fibrillation; I95.9 Hypotension, unspecified; K62.89 Other specified diseases of anus and rectum; R32 Unspecified urinary incontinence; L89.151 Pressure ulcer of sacral region, stage 1; M54.16 Radiculopathy, lumbar region; I35.0 Nonrheumatic aortic (valve) stenosis; H35.30 Unspecified macular degeneration; E86.1 Hypovolemia; E78.5 Hyperlipidemia, unspecified; Z87.891 Personal history of nicotine dependence; Z79.899 Other long term (current) drug therapy; Z88.1 Allergy status to other antibiotic agents
CPT/HCPCS: 70450; 71046; 74176; 76700; 80048; 80053; 81003; 81015; 83605; 85025; 85027; 87040; 87045; 87046; 87077; 87086; 87150; 87186; 87205; 87324; 87427; 87449; 93005; 96360; 96361; 97166; 97530; 97535; 99291; J1335